=== PATIENT | female | born 1960 | race African-American/Black ===

== ENCOUNTER 2023-12-16 08:08 | Emergency (ER) | payer OTHER | END 2023-12-16 08:25 | disposition left against medical advice (07) | LOC: ERS 08:08 | DX: Z53.21 Procedure and treatment not carried out due to patient leaving prior to being seen by health care provider (principal) ==

== ENCOUNTER 2024-04-07 09:36 | Emergency (ER) | payer BC | END 2024-04-07 10:18 | disposition home or self-care (01) | LOC: ERS 09:36 | DX: R04.0 Epistaxis (principal); I10 Essential (primary) hypertension | CPT/HCPCS: 99282 ==

== ENCOUNTER 2024-11-13 12:10 | Observation (INO) | payer BC ==
[~2024-11-13 12:10] MED LIST: Iopamidol-370 76% 500 ML MDV (1 ML CHARGE) ONE
[2024-11-13 12:47] LABS: #Basophils 0.04 10x3/uL (0.0-0.2); %Basophils 0.8 % (0.0-1.0); %Eosinophils 2.2 % (0.0-10.0); %Lymphocytes 32.1 % (21.0-51.0); %Monocytes 7.5 % (0.0-10.0); %Neutrophils 57.2 % (42.0-75.0); Hematocrit 33.9 % (36.0-47.0); Mean Corpuscular HGB CONC 32.4 g/dL (32.0-36.0); Mean Corpuscular Hemoglobin 28.6 pg (27.0-31.0); Mean Corpuscular Volume 88.1 fL (78.0-98.0); Mean Platelet Volume 9.1 fL (7.4-10.4); Platelet Count 259 10x3/uL (130-400); RBC Distribution Width 13.1 % (11.5-14.5); Red Blood Cell (RBC) Count 3.85 mill/uL (4.20-5.40)
[2024-11-13 13:17] LABS: ALT (SGPT) 20 U/L (8-55); AST (SGOT) 19 U/L (5-34); Albumin 3.7 g/dL (3.4-4.8); Alkaline Phosphatase 103 U/L (40-110); Anion Gap 14 mmol/L (10-20); BUN (Urea Nitrogen) 11 mg/dL (9.8-20.1); Bilirubin, Total 0.5 mg/dL (0.2-1.2); Calc. Creatinine Clearance 0 mL/min (70-130); Calcium 9.1 mg/dL (7.8-10.44); Carbon Dioxide 23 mmol/L (23-31); Chloride 106 mmol/L (98-107); Estimated GFR 82; Globulin 4.2 g/dL (2.4-3.5); Glucose 96 mg/dL (80-115); Potassium 3.6 mmol/L (3.5-5.1); Protein, Total 7.9 g/dL (5.8-8.1); Sodium 139 mmol/L (136-145)
[2024-11-13 13:20] LABS: Troponin I Less than 0.010 ng/mL (< 0.028)
[2024-11-13 14:34] LABS: Magnesium 1.9 mg/dL (1.6-2.6); Prothrombin Time 13.5 sec (12.0-14.7)
[2024-11-13 14:35] LABS: PTT 27.2 sec (22.9-36.1)
[2024-11-13 14:38] LABS: Bilirubin Negative (Negative); Blood, Urine 2+ (Negative); CAUTI Indications for Culture Alt mental st,lethar; Clarity Clear (Clear); Glucose, Urine (Dipstick) Normal (Negative); Ketone, Urine Negative (Negative); Leukocyte 500 Leu/uL (Negative); Nitrite Negative (Negative); Protein, Urine (Dipstick) 50 mg/dL (Neg-Trace); RBC/HPF None Seen HPF (0-3); Specific Gravity, Urine 1.013 (1.002-1.036); Urobilinogen Normal mg/dL (Less than 2)
[2024-11-13 14:41] LABS: Bacteria/HPF 1+ HPF (None Seen)
[2024-11-13 14:42] LABS: Urine Culture Reflex Yes Yes
[2024-11-13] MEDS ORDERED: cefTRIAXone (ROCEPHIN) 2 GM VIAL ONE (16:00)
[2024-11-13] MEDS ORDERED: Sodium Chloride 0.9% 100 ML ONE (16:00)
[2024-11-13 16:02] LABS: Troponin I Less than 0.010 ng/mL (< 0.028)
[2024-11-13] MEDS ORDERED: hydrALAZINE 20 MG/ML VIAL SLOW IVP PRN (16:02)
[2024-11-13 18:03] VITALS: BMI 28.6
[2024-11-13] MEDS: Acetaminophen 325 MG TAB PO PRN (18:12)
[2024-11-13 19:50] LABS: Troponin I Less than 0.010 ng/mL (< 0.028)
[2024-11-13] MEDS: Famotidine 20 MG TAB PO SCH (20:29)
[2024-11-13] MEDS: Atorvastatin Calcium 40 MG TAB PO SCH (20:30)
[2024-11-14 03:59] LABS: #Basophils 0.05 10x3/uL (0.0-0.2); %Basophils 0.9 % (0.0-1.0); %Eosinophils 2.8 % (0.0-10.0); %Lymphocytes 38.3 % (21.0-51.0); %Monocytes 9.4 % (0.0-10.0); %Neutrophils 48.3 % (42.0-75.0); Hematocrit 31.9 % (36.0-47.0); Hemoglobin 10.5 g/dL (12.0-16.0); Mean Corpuscular HGB CONC 32.9 g/dL (32.0-36.0); Mean Corpuscular Hemoglobin 28.7 pg (27.0-31.0); Mean Corpuscular Volume 87.2 fL (78.0-98.0); Mean Platelet Volume 9.3 fL (7.4-10.4); Platelet Count 246 10x3/uL (130-400); RBC Distribution Width 13.3 % (11.5-14.5); Red Blood Cell (RBC) Count 3.66 mill/uL (4.20-5.40)
[2024-11-14 04:10] LABS: Hemoglobin A1c 5.3 % (4.0-6.0)
[2024-11-14 04:21] LABS: Cardiac Risk 2.3 (Less than 4.5)
[2024-11-14] MEDS: Enoxaparin 40 MG (0.4 mL) SYRINGE SC SCH (07:56)
[2024-11-14] MEDS: Aspirin 81 mg Enteric Coated Tablet PO SCH (07:56)
[2024-11-15 11:45] VITALS: BP 136/80; TEMP 98.1
== END 2024-11-15 16:13 | disposition home or self-care (01) ==
LOC: ERS 12:10 → 2SE 17:36
PROVIDERS: ADMIT Family Medicine; ATTEND Internal Medicine
PROC: B246ZZZ Ultrasonography of Right and Left Heart (ICD-10-PCS; principal; 2024-11-13)
DX: G45.9 Transient cerebral ischemic attack, unspecified (principal); R55 Syncope and collapse; I10 Essential (primary) hypertension; M06.9 Rheumatoid arthritis, unspecified; M19.90 Unspecified osteoarthritis, unspecified site; N39.0 Urinary tract infection, site not specified; J45.909 Unspecified asthma, uncomplicated; Z79.82 Long term (current) use of aspirin; Z79.899 Other long term (current) drug therapy; Z98.1 Arthrodesis status; Z79.51 Long term (current) use of inhaled steroids
CPT/HCPCS: 36415; 36416; 70450; 70496; 70498; 70551; 71046; 80053; 80061; 81001; 83036; 83605; 83735; 84443; 84484; 85025; 85610; 85730; 87040; 87086; 93005; 93306; 94760; 96372; 96374; G0378; J0696; J1650; Q9967